=== PATIENT | male | born 1940 | race Hispanic/Latino ===

== ENCOUNTER 2019-08-16 08:59 | Day surgery (SDC) | payer MEDICARE ==
[~2019-08-16 08:59] MED LIST: SODIUM CHLORIDE 0.9% 1000 ML 1,000 ML IV SCH
--- NOTE | 2019-08-16 09:47 | Anesthesia Consultation ---
Anesthesia Consult and Med Hx Date of service: 08/16/19 - Airway Anesthetic Teeth Evaluation: Dentures ROM Head & Neck: Adequate Mental/Hyoid Distance: Adequate Mallampati Class: Class II Intubation Access Assessment: Probably Good - Pre-Operative Health Status ASA Pre-Surgery Classification: ASA3 Proposed Anesthetic Plan: MAC - Pulmonary Hx Smoking: Yes (past) Hx Asthma: No Hx Respiratory Symptoms: No SOB: No COPD: No Home Oxygen Therapy: No Hx Pneumonia: No Hx Sleep Apnea: No - Cardiovascular System Hx Hypertension: Yes (>20yrs) Hx Coronary Artery Disease: No Hx Heart Attack/AMI: No Hx Angina: No Hx Percutaneous Transluminal Coronary Angioplasty (PTCA): No Hx Cardia Arrhythmia: Yes Hx Pacemaker: Yes Hx Internal Defibrillator: No Hx Valvular Heart Disease: No Hx Heart Murmur: No Hx Peripheral Vascular Disease: No - Central Nervous System Hx Neuromuscular Disorder: No Hx Seizures: No CVA: No Hx Back Pain: Yes Hx Psychiatric Problems: No - Gastrointestinal Hx Ulcer: No Hx Gastroesophageal Reflux Disease: No - Endocrine Hx Renal Disease: No Hx End Stage Renal Disease: No Hx Cirrhosis: No Hx Liver Disease: No Hx Insulin Dependent Diabetes: No Hx Non-Insulin Dependent Diabetes: No Hx Thyroid Disease: No Hx Hypothyroidism: No Hx Hyperthyroidism: No - Hematic Hx Anemia: No Hx Sickle Cell Disease: No - Other Systems Hx Alcohol Use: No Hx Substance Use: No Hx Cancer: Yes (skin left ear, left forehead) Hx Obesity: No
--- NOTE | 2019-08-16 09:48 | Anesthesia Day of Surgery ---
Anesthesia Day of Surgery - Day of Surgery Patient Examined: Yes Patient H&P Reviewed: Yes Patient is NPO: Yes Beta Blockers: No
[2019-08-16] MEDS ORDERED: LIDOCAINE MPF (2%) 20 MG/1 ML VIAL 5 ML ONE (11:00)
[2019-08-16] MEDS ORDERED: PROPOFOL 200 MG/20 ML VIAL IV ONE ×2 (12:09)
--- NOTE | 2019-08-16 12:14 | Procedure Note ---
Date of procedure: 08/16/19 Pre-op diagnosis: Dyspahgia and GERD and H/O Colon Polyp Post-op diagnosis: other (Benign Esophageal Stenosis (s/p Balloon dilation)/ Erosive Esophagitis/Gastritis/R/O Esoinophilic Esophagitis/Sessile Cecal Polyp (removed in 'piece meal'fashion)/Proximal Transverse Colon Polyp/Moderate,Deep Diverticular Disease/ Minor,Internal Hemorrhoid) Procedure: WGD with Biopsy and Esophageal Balloon Dilation (20 mm Balloon) and Colonoscopy with Hot Snare Polypectomy and Polyp Ablation and Cold Biopsy and Shea Ink Injection (4 cc) Anest[place]: [facility] [place] Surgeon: VALERIO MAURICIO Estimated blood loss: minimal Pathology: list Specimen disposition: to lab Condition: stable Disposition: same day (Treat with PPI. Avoid aspirin and NSAID and anticoagulants for 7 days; otherwise resume home mediction and follow up in 1 to 2 weeks ([phone]). Encourage fiber intake and PPI.)
--- NOTE | 2019-08-16 12:30 | Operative Report ---
PROCEDURE: Esophagogastroduodenoscopy with biopsy and status post balloon dilation. INDICATIONS: A 79-year-old white male with a history of SIADH and history of coronary artery disease. He has been having some problems with dysphagia. EGD was done to assess for the problem. DESCRIPTION OF PROCEDURE: Procedure was done after getting informed consent with MAC anesthesia. Instrument was passed through the hypopharynx into the esophagus, which did show some mild benign esophageal stenosis. This was dilated with a 20 mm balloon that was maintained for a minute at the end of the procedure. Biopsy was done from the distal esophagus and from the mid esophagus to assess for the severity of erosive esophagitis and possible presence of eosinophilic esophagitis. Stomach showed gastritis. Biopsy was additionally done from the gastric antrum, gastric body and angular incisura. There was minimal bleeding from the biopsy sites. The pylorus was patent. The duodenum in the first and second portion appeared normal. ASSESSMENT: Dysphagia secondary to mild benign esophageal stenosis, status post esophageal balloon dilation with a 20 mm balloon, erosive esophagitis, which is mild to moderate, rule out eosinophilic esophagitis, gastritis, patent pylorus. There was minimal bleeding associated with the procedure. No complications associated with the procedure. Plan is treat the patient with PPI. The patient is to have a colonoscopy done because the patient has a prior history of colon polyps and will be asked to follow up in the office in 1-2 weeks' time. The patient will be asked to refrain from using aspirin and aspirin-related products and anticoagulants for the next 4-5 days, but otherwise resume home medication. The procedure was done in the GI lab with assistance of the GI lab team, which included leighton Rodriges and with assistance of Anesthesia. JOB# [id number] LUIZA/YONNY
--- NOTE | 2019-08-16 12:32 | Operative Report ---
PROCEDURE: Colonoscopy. INDICATIONS: A 79-year-old white male who has prior history of colon polyp. Colonoscopy was done to assess for any additional recurrence of polyps. Prior to the colonoscopy, had an EGD done, which showed mild benign esophageal stenosis, for which he underwent balloon dilation with a 20 mm balloon as well as presence of erosive esophagitis and gastritis. Biopsy was also done to rule out for eosinophilic esophagitis. DESCRIPTION OF PROCEDURE: Initial rectal exam was unremarkable. Instrument was passed through the rectum onto the cecum, which was identified with ileocecal valve and the appendiceal orifice. Visualization was fair to good. In the distal cecum, there was a sessile polyp about 12-14 mm in length that was removed in a piecemeal fashion and about 4 mL of Shea ink was injected around it to further localize it in a future colonoscopy. The patient will need to come back for repeat colonoscopy possibly in 6 months' time. On further withdrawal, there was a cluster of 3 polyps that were about 10 mm in size that was noted in the proximal transverse colon that was removed by snare excision and part of it was also ablated with the tip of the polypectomy with snare. There were scattered diverticula noted throughout the proximal transverse and mainly in the descending colon and the remaining part of the descending colon in the sigmoid which appeared normal other than for some deep diverticula. The rectum showed some solitary small polyp, possibly hyperplastic that was removed by cold biopsy and also showed some minor internal hemorrhoid on the retroverted view. There was minimal bleeding associated with the procedure. No complications associated with the procedure. ASSESSMENT: History of colon polyps, multiple polyps noted, a large sessile polyp that was noted in the cecum that was removed in piecemeal fashion, polyp in the proximal transverse colon that was removed by snare excision and a small polyp in the rectum that was possibly hyperplastic and there was moderate diverticular disease and minor internal hemorrhoid. The patient will be asked to avoid aspirin and aspirin-related products and anticoagulants for the next 3-4 days. Encouraged to take fiber supplements and will be treated with PPI because of the EGD findings of erosive esophagitis and gastritis. The patient will also be asked to follow up in the office in 1-2 weeks' time. Procedure was done in the GI lab with assistance of the GI lab team, which included Stephanie Laureano as well as Opal manzanares and with assistance of anesthesia. JOB# [id number] LUIZA/YONNY
[2019-08-16 12:48] VITALS: BP 144/78
--- NOTE | 2019-08-16 14:38 | Post Anesthesia Evaluation ---
- Post Anesthesia Evaluation Patient Participated: Yes Airway Patent: Yes Stable Respiratory Function: Yes Nausea/Vomiting: Yes Temp > 96.8F: Yes Pain Manageable: Yes Adequeate Hydration: Yes Anesthesia Complications: No Block Receding Appropriately: Not Applicable Patient on Ventilator: No
== END 2019-08-16 09:00 | disposition home or self-care (01) ==
LOC: GIO 08:59
DX: Z12.11 Encounter for screening for malignant neoplasm of colon (principal); K29.40 Chronic atrophic gastritis without bleeding; K22.2 Esophageal obstruction; K62.1 Rectal polyp; D12.0 Benign neoplasm of cecum; D12.3 Benign neoplasm of transverse colon; K64.8 Other hemorrhoids; K57.30 Diverticulosis of large intestine without perforation or abscess without bleeding; I25.10 Atherosclerotic heart disease of native coronary artery without angina pectoris; E78.5 Hyperlipidemia, unspecified; I10 Essential (primary) hypertension; I48.91 Unspecified atrial fibrillation; J43.9 Emphysema, unspecified; K21.0 Gastro-esophageal reflux disease with esophagitis; Z85.46 Personal history of malignant neoplasm of prostate; Z79.899 Other long term (current) drug therapy; Z79.82 Long term (current) use of aspirin; Z98.61 Coronary angioplasty status; Z95.0 Presence of cardiac pacemaker; Z98.890 Other specified postprocedural states; Z80.42 Family history of malignant neoplasm of prostate; Z82.49 Family history of ischemic heart disease and other diseases of the circulatory system; Z88.8 Allergy status to other drugs, medicaments and biological substances
CPT/HCPCS: 43239; 43249; 45380; 45381; 45385; 88305; 88342; C1726; J2704; J7030

== ENCOUNTER 2020-04-19 09:34 | Day surgery (SDC) | payer MEDICARE ==
--- NOTE | 2020-04-19 10:35 | Anesthesia Consultation ---
Anesthesia Consult and Med Hx Date of service: 04/19/20 - Airway Anesthetic Teeth Evaluation: Good ROM Head & Neck: Adequate Mental/Hyoid Distance: Adequate Mallampati Class: Class II Intubation Access Assessment: Good - Pulmonary Exam CTA: Yes - Cardiac Exam Cardiac Exam: RRR - Pre-Operative Health Status ASA Pre-Surgery Classification: ASA2 Proposed Anesthetic Plan: MAC - Pulmonary Hx Smoking: Yes (past) Hx Asthma: No Hx Respiratory Symptoms: No SOB: No COPD: No Hx Pneumonia: No Hx Sleep Apnea: No - Cardiovascular System Hx Hypertension: Yes (>20yrs) Hx Coronary Artery Disease: No Hx Heart Attack/AMI: No Hx Angina: No Hx Percutaneous Transluminal Coronary Angioplasty (PTCA): No Hx Cardia Arrhythmia: Yes Hx Pacemaker: Yes (on demand) Hx Internal Defibrillator: No Hx Valvular Heart Disease: No Hx Heart Murmur: No Hx Peripheral Vascular Disease: No - Central Nervous System Hx Neuromuscular Disorder: No Hx Seizures: No CVA: No Hx Back Pain: Yes Hx Psychiatric Problems: No - Gastrointestinal Hx Ulcer: No Hx Gastroesophageal Reflux Disease: No - Endocrine Hx Renal Disease: No Hx End Stage Renal Disease: No Hx Cirrhosis: No Hx Liver Disease: No Hx Insulin Dependent Diabetes: No Hx Non-Insulin Dependent Diabetes: No Hx Thyroid Disease: No Hx Hypothyroidism: No Hx Hyperthyroidism: No - Hematic Hx Anemia: No Hx Sickle Cell Disease: No - Other Systems Hx Alcohol Use: No Hx Substance Use: No Hx Cancer: Yes (skin left ear, left forehead) Hx Obesity: No
--- NOTE | 2020-04-19 10:36 | Anesthesia Day of Surgery ---
Anesthesia Day of Surgery - Day of Surgery Patient Examined: Yes Patient H&P Reviewed: Yes Patient is NPO: Yes Beta Blockers: Yes
[2020-04-19] MEDS ORDERED: propofoL 200 MG/20 ML VIAL IV ONE ×2 (11:43)
--- NOTE | 2020-04-19 12:26 | Procedure Note ---
Date of procedure: 04/19/20 Pre-op diagnosis: Dysphagia/H/O Colon Polyps Post-op diagnosis: other (Mild,Benign esophageal Stenosis (s/p Balloon dilation -20mm balloon)/ Mild to Moderate Erosive Esophagtis/ GAstritis/ H/O Colon Polyp (none now)/ Diverticular Disease (left Colon). Mild to Moderate Internal Hemorr hoid) Procedure: EGD with Cold Biopsy and Esophageal Balloon dilation (20 mm balloon)/ Colonoscopy Anesthesia: MAC Surgeon: VALERIO MAURICIO Estimated blood loss: minimal Pathology: list Specimen disposition: to lab Condition: stable Disposition: same day (Treat with PPI; avoid aspirin and NSAID and anticoagulants for 4 days; otherwise resume home medic ation. Follow up in 1 to 2 weeks ([phone]).)
--- NOTE | 2020-04-19 13:03 | Operative Report ---
PROCEDURE: Colonoscopy. INDICATIONS: This is a 79-year-old white male with a prior history of colon polyp. He had a colon polyp that was removed in a piecemeal fashion from the proximal colon and the cecum earlier this year. That area was tattooed. A repeat colonoscopy was done to make sure that there was not any remnant of polyp that needed to be removed. He had a similar type of colonoscopy done a few years earlier when another part of the colon in the transverse colon was tattooed, proximal transverse colon was tattooed and that polyp at that time was removed in its entirety. The procedure was done following an EGD, which showed presence of mild benign esophageal stenosis for which he underwent dilation as well as [id number] erosive esophagitis and gastritis. DESCRIPTION OF PROCEDURE: Initial rectal exam was unremarkable. Instrument was passed through the rectum onto the cecum, which was identified with ileocecal valve and appendiceal orifice. Visualization was fair to good. The tattooed area with Shea ink in the cecum was noted, but there were no colon polyps there. The remaining part of the cecum and ascending colon showed normal mucosa. There was also another tattooed area noted in the proximal transverse colon and no polyps were noted there. The remaining part of the transverse colon showed normal mucosa. There was moderate diverticular disease noted in the left colon and rectum showed [id number] internal hemorrhoid on the retroverted view. ASSESSMENT: History of colon polyps, no colon polyps noted. Moderate left colon diverticula, mild to moderate internal hemorrhoids. There were no biopsies done in the colon. No bleeding associated with the procedure. The patient will be encouraged to take fiber supplements. Resume home medication, treated with PPI because of the EGD findings of esophagitis, gastritis and asked to follow up in the office in 1-2 weeks' time. The procedure was done in the GI lab with assistance of the GI lab team, which included JAIMEE Laureano, as well as Kelechi manzanares and with assistance of anesthesia, which was Chandan Richey. JOB# [id number] LUIZA/YONNY
--- NOTE | 2020-04-19 13:26 | Post Anesthesia Evaluation ---
- Post Anesthesia Evaluation Patient Participated: Yes Airway Patent: Yes Stable Respiratory Function: Yes Nausea/Vomiting: No Temp > 96.8F: Yes Pain Manageable: Yes Adequeate Hydration: Yes Anesthesia Complications: No
--- NOTE | 2020-04-19 13:42 | Operative Report ---
PROCEDURE: Esophagogastroduodenoscopy with biopsy and esophageal balloon dilation. INDICATIONS: A 79-year-old white male with an underlying history of SIADH, history of a pacemaker, who has on occasion dysphagia, for which he required esophageal dilation to be done. DESCRIPTION OF PROCEDURE: The procedure was done after getting informed consent with MAC anesthesia. Instrument was passed through the hypopharynx into the esophagus, which showed mild benign esophageal stenosis and [id number] distal erosive esophagitis. Photo documentation and biopsy was done from the distal esophagus and the esophagus was dilated at the end of the procedure with a 20-mm balloon that was maintained for a minute. The stomach showed antral gastritis. Pylorus was patent. Duodenum in the first and second portion appeared normal. Biopsy was also done from the gastric antrum, gastric body and angular incisura to rule out for H. pylori and atrophic gastritis. There was minimal bleeding associated with the procedure. No complications associated with the procedure. ASSESSMENT: Dysphagia, mild benign esophageal stenosis, [id number] erosive esophagitis, gastritis. PLAN: To treat the patient with PPI. Avoid aspirin and aspirin-related products and anticoagulants for the next 4-5 days. The patient is to also have a colonoscopy done because of a history of colon polyp as to remove any colon polyps that may be there. Procedure was done in the GI lab with assistance of the GI lab team, which included JAIMEE, Stephanie Laureano as well as Kelechi manzanares and with assistance of anesthesia, which is Chandan Richey. JOB# [id number] LUIZA/YONNY
[2020-04-19 15:55] VITALS: BP 122/62
== END 2020-04-19 09:35 | disposition home or self-care (01) ==
LOC: GIO 09:34
DX: Z09 Encounter for follow-up examination after completed treatment for conditions other than malignant neoplasm (principal); R13.10 Dysphagia, unspecified; K57.30 Diverticulosis of large intestine without perforation or abscess without bleeding; K22.2 Esophageal obstruction; K21.0 Gastro-esophageal reflux disease with esophagitis; K29.70 Gastritis, unspecified, without bleeding; K31.89 Other diseases of stomach and duodenum; I25.10 Atherosclerotic heart disease of native coronary artery without angina pectoris; E78.5 Hyperlipidemia, unspecified; I10 Essential (primary) hypertension; I42.9 Cardiomyopathy, unspecified; I48.91 Unspecified atrial fibrillation; J43.9 Emphysema, unspecified; Z86.010 Personal history of colon polyps; Z79.899 Other long term (current) drug therapy; Z79.82 Long term (current) use of aspirin; Z98.61 Coronary angioplasty status; Z98.890 Other specified postprocedural states; Z80.42 Family history of malignant neoplasm of prostate; Z82.49 Family history of ischemic heart disease and other diseases of the circulatory system; Z88.8 Allergy status to other drugs, medicaments and biological substances
CPT/HCPCS: 43239; 43249; 45378; 88305; 88342; C1726; J2704; J7030